=== PATIENT | female | born 1990 | race African-American/Black ===

== ENCOUNTER 2020-04-11 17:31 | Emergency (ER) | payer MEDICAID ==
[~2020-04-11] VITALS: Ht 165.1 cm; Wt 86.2 kg
[2020-04-11 17:46] VITALS: BP 116/78
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
[2020-04-11] MEDS ORDERED: Ketorolac 30mg Inj IM ONE (18:15)
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
[2020-04-11] MEDS ORDERED: ROBAXIN-500MG ORAL (18:50)
[2020-04-11] MEDS ORDERED: IBU800 MG PO (18:50)
--- NOTE | 2020-04-11 18:56 | NUR ---
ED Nurse Note: splint was done by Hector, patient tolerated procedure well, crutches were provided
[2020-04-11 19:22] VITALS: BP 116/78
--- NOTE | 2020-04-11 19:23 | NUR ---
ED Nurse Note: Pt cleared by health care Provider for discharge. DC instructions/prescription was given and explained to pt and verbalized understanding of teachings. All medical deviecs such as ID band removed. Pt is AAO x4, ambulatory and left with all personal belongings.
--- NOTE | 2020-04-12 15:15 | Diagnostic Imaging Report ---
Indication: Left foot trauma Technique: 3 views left foot Comparison: none Findings: No acute fractures. No dislocations. The joint spaces are preserved Impression: Negative
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
== END 2020-04-11 19:23 | disposition home or self-care (01) ==
LOC: EMR 18:07
DX: S97.02XA Crushing injury of left ankle, initial encounter (principal); S97.82XA Crushing injury of left foot, initial encounter; V43.52XA Car driver injured in collision with other type car in traffic accident, initial encounter; Y92.9 Unspecified place or not applicable
CPT/HCPCS: 29515; 73610; 73630; 96372; J1885; Z7502; 99284